=== PATIENT | female | born 1985 | race African-American/Black ===

== ENCOUNTER 2017-09-25 04:43 | Emergency (ER) | payer OTHER ==
[2017-09-25] MEDS ORDERED: DIPHENHYDRAMINE HCL 50 MG/ML VIAL IV ONE (05:07)
[2017-09-25] MEDS ORDERED: METOCLOPRAMIDE HCL INJ/PF 10 MG/2 ML SDV IV ONE (05:07)
[2017-09-25] MEDS ORDERED: METHOCARBAMOL INJ/PF 1000 MG/10 ML SDV IV ONE (05:07)
[2017-09-25] MEDS ORDERED: NORMAL SALINE 1000 ML 1,000 ML IV ONE (05:07)
[2017-09-25] MEDS ORDERED: KETOROLAC TROMETHAMINE INJ/PF 30 MG/1 ML SDV IV ONE (05:07)
--- NOTE | 2017-09-25 05:22 | ER Document Report ---
ED Headache - General Chief Complaint: Headache Stated Complaint: headache Time Seen by Provider: 09/25/17 05:06 Notes: Patient is a 31-year-old female that comes emergency department for chief complaint of headache. She states the pain is on the left side of her head mainly, comes from behind her ear and then towards her jaw and then she has a tight band across her head with throbbing pain. She denies photophobia, phonophobia, nausea vomiting, visual changes, neck stiffness, fever, injury. She states she gets headaches like this occasionally. Headache has come and gone throughout the day prompting her to come for evaluation. She also states her blood sugars have been all over the place, she is on a sulfonylurea for this , does not take insulin. She denies any other medical problems. - Related Data Allergies/Adverse Reactions: No Known Allergies Allergy (Unverified 09/25/17 04:51) Past Medical History - General Information source: Patient - Social History Smoking Status: Never Smoker Frequency of alcohol use: None Drug Abuse: None Lives with: Family Family History: Reviewed & Not Pertinent Endocrine Medical History: Reports: Hx Diabetes Mellitus Type 2 Surgical Hx: Negative - Immunizations Immunizations up to date: Yes Hx Diphtheria, Pertussis, Tetanus Vaccination: Yes Review of Systems - Review of Systems Constitutional: No symptoms reported EENT: No symptoms reported Cardiovascular: No symptoms reported Respiratory: No symptoms reported Gastrointestinal: No symptoms reported Genitourinary: No symptoms reported Female Genitourinary: No symptoms reported Musculoskeletal: See HPI Skin: No symptoms reported Hematologic/Lymphatic: No symptoms reported Neurological/Psychological: No symptoms reported Physical Exam - General General appearance: Appears well In distress: None - Patient alert, well-appearing, does not appear to be in any distress - HEENT Head: Normocephalic, Atraumatic Eyes: Normal Conjunctiva: Normal Extraocular movements intact: Yes Eyelashes: Normal Pupils: PERRL Ears: Normal Sinus: Normal Nasal: Normal Mouth/Lips: Normal. No: Dental fracture - Normal dental exam Mucous membranes: Normal Pharynx: Normal Neck: Other - Patient with tenderness along the right paracervical muscles which are very tight, she has some limited range of motion laterally, normal extension and flexion, no nuchal rigidity, normal anterior neck, normal exam otherwise. No: Anterior cervical chain, Posterior cervical chain, Meningismus - Respiratory Respiratory status: No respiratory distress Breath sounds: Normal. No: Decreased air movement, Wheezing - Cardiovascular Rhythm: Regular. No: Tachycardia Heart sounds: Normal auscultation, S1 appreciated, S2 appreciated - Abdominal Inspection: Normal Tenderness: Nontender. No: Tender, Guarding - Back Back: Nontender. 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 No nuchal rigidity, well-appearing patient, unremarkable workup with no acidosis, leukocytosis, or concerning vital signs. Urine suggestive of urinary tract infection, patient states she has urinary frequency but she thought was related to hyperglycemia. Will treat for urinary tract infection. Headache was not maximal in onset, intermittent, seems somewhat mild, no neurological deficits, very low suspicion of intracranial hemorrhage, sinus venous thrombosis, meningitis. On reevaluation after treatment with medications including Robaxin patient states her headache is gone. Treating for headache at home, discussed follow- up and return precautions, patient states satisfaction and agreement. - Laboratory Result Diagrams: 09/25/17 05:15 09/25/17 05:15 Laboratory results interpreted by me: 09/25/17 09/25/17 09/25/17 05:06 05:15 05:15 MCH 26.7 L RDW 14.3 H Glucose 213 H POC Glucose 204 H Urine Ketones Urine Blood Ur Leukocyte Esterase 09/25/17 05:15 MCH RDW Glucose POC Glucose Urine Ketones 20 H Urine Blood SMALL H Ur Leukocyte Esterase SMALL H Discharge - Discharge Clinical Impression: Urinary frequency Headache Qualifiers: Headache type: unspecified Headache chronicity pattern: acute headache Intractability: not intractable Qualified Code(s): R51 - Headache Condition: Stable Disposition: HOME, SELF-CARE Additional Instructions: Your examination, symptoms, and response to treatment are most consistent with a tension headache. You also have a urinary tract infection. Take Keflex antibiotic as prescribed to completion. Take the Robaxin muscle relaxer, apply heat to your neck, perform gentle stretches. If you develop a headache take Fioricet for tension headache. Follow-up with primary care for additional evaluation and management. Return for any concerning or worsening symptoms including fever, vomiting, severe headache, or any other concerning or worsening symptoms. Prescriptions: Butalb/Acetaminophen/Caffeine [Fioricet (50-325-40 mg) Tablet] 1 tab PO Q4HP PRN #30 tab PRN Reason: Cephalexin Monohydrate [Keflex 500 mg Capsule] 500 mg PO BID #10 capsule Methocarbamol [Robaxin 750 mg Tablet] 750 mg PO Q6 #20 tablet Forms: Return to Work
[2017-09-25 05:48] LABS: ABSOLUTE BASOPHILS # (AUTO) 0.1 10^3/uL (0.0-0.2); ABSOLUTE EOSINOPHILS # (AUTO) 0.2 10^3/uL (0.0-0.6); ABSOLUTE LYMPHOCYTES (AUTO) 3.2 10^3/uL (0.5-4.7); ABSOLUTE MONOCYTES (AUTO) 0.4 10^3/uL (0.1-1.4); ABSOLUTE NEUT (AUTO) 5.1 10^3/uL (1.7-8.2); BASOPHILS % (AUTO) 1.4 % (0-2); EOSINOPHILS % (AUTO) 2.7 % (0-6); HEMATOCRIT 39.8 % (36.0-47.0); HEMOGLOBIN 13.3 g/dL (12.0-15.5); LYMPHOCYTES % (AUTO) 35.6 % (13-45); MEAN CORPUSCULAR HEMOGLOBIN 26.7 pg (27.0-33.4); MEAN CORPUSCULAR HGB CONC 33.4 g/dL (32.0-36.0); MEAN CORPUSCULAR VOLUME 80 fl (80-97); MONOCYTES % (AUTO) 4.1 % (3-13); PLATELET COUNT 245 10^3/uL (150-450); RED BLOOD COUNT 4.98 10^6/uL (3.72-5.28); RED CELL DISTRIBUTION WIDTH 14.3 % (11.5-14.0); SEGMENTED NEUTROPHILS % (AUTO) 56.2 % (42-78); TOTAL CELLS COUNTED % (AUTO) 100 %
[2017-09-25 06:09] LABS: ANION GAP 10 (5-19); BILIRUBIN,URINE NEGATIVE (NEGATIVE); BLOOD UREA NITROGEN 15 mg/dL (7-20); CARBON DIOXIDE 25 mmol/L (22-30); CHLORIDE 106 mmol/L (98-107); COLOR,URINE YELLOW; GLUCOSE 213 mg/dL (75-110); GLUCOSE, URINE NEGATIVE (NEGATIVE); KETONES,URINE 20 mg/dL (NEGATIVE); LEUKOCYTE ESTERASE,URINE SMALL (NEGATIVE); NITRITE,URINE NEGATIVE (NEGATIVE); POTASSIUM 3.6 mmol/L (3.6-5.0); PROTEIN,URINE NEGATIVE (NEGATIVE); SODIUM 141.3 mmol/L (137-145); UROBILINOGEN,URINE NEGATIVE mg/dL (<2.0)
[2017-09-25 06:10] LABS: APPEARANCE,URINE CLEAR
[2017-09-25] MEDS ORDERED: CEPHALEXIN 500 MG CAPSULE PO ONE (06:28)
[2017-09-25 07:33] VITALS: BP 121/81
== END 2017-09-25 07:40 | disposition home or self-care (01) ==
LOC: ER 04:43
DX: R35.0 Frequency of micturition (principal); R51 Headache; R68.84 Jaw pain; E11.9 Type 2 diabetes mellitus without complications
CPT/HCPCS: 99284; 96361; 96374; 96375; 36415; 82962; 85025; 81025; 80048; 81001; J1200; J2800; J1885; J2765; J7030